=== PATIENT | female | born 1945 | race Caucasian/White ===

== ENCOUNTER 2021-11-06 11:29 | Outpatient (CLI) | payer MEDICARE | END 2021-11-06 11:30 | disposition home or self-care (01) | LOC: SCSRAD 11:29 | PROVIDERS: ATTEND Family Medicine | DX: M25.551 Pain in right hip (principal); M25.552 Pain in left hip; M53.3 Sacrococcygeal disorders, not elsewhere classified; M47.818 Spondylosis without myelopathy or radiculopathy, sacral and sacrococcygeal region | CPT/HCPCS: 72170; 72202 ==

== ENCOUNTER 2021-12-20 09:11 | Outpatient (CLI) | payer MEDICARE ==
[2021-12-20 11:18] LABS: #Basophils 0.1 10x3/uL (0.0-0.2); #Eosinphils 0.1 10x3/uL (0.0-0.5); #Monocytes 0.5 10x3/uL (0.0-1.1); #Neutrophils 2.9 10x3/uL (1.5-8.4); %Basophils 0.9 % (0.0-2.0); %Eosinophils 2.3 % (0.0-6.0); %Monocytes 9.2 % (0.0-10.0); %Neutrophils 54.8 % (40.0-75.0); Hemoglobin 13.3 g/dL (12.0-15.5); Mean Corpuscular HGB CONC 31.8 g/dL (32.0-36.0); Mean Corpuscular Hemoglobin 30.2 pg (27.0-33.0); Mean Corpuscular Volume 94.8 fl (81.6-98.3); Mean Platelet Volume 10.6 fl (7.4-10.4); Platelet Count 180 10x3/uL (150-450); RBC Distribution Width 13.2 % (11.5-14.5); Red Blood Cell (RBC) Count 4.41 10x6/uL (3.90-5.03); White Blood Cell (WBC) Count 5.3 10x3/uL (3.5-10.5)
[2021-12-20 12:22] LABS: Anion Gap 13 mmol/L (10-20); BUN (Urea Nitrogen) 16 mg/dL (9.8-20.1); Calc. Creatinine Clearance 0 mL/min (70-130); Calcium 9.1 mg/dL (7.8-10.44); Carbon Dioxide 28 mmol/L (23-31); Chloride 107 mmol/L (98-107); Glucose 95 mg/dL (83-110); Potassium 3.9 mmol/L (3.5-5.1); Sodium 144 mmol/L (136-145)
[2021-12-21 10:45] LABS: SARS-CoV-2 PCR by NAA DETECTED (NotDetected)
== END 2021-12-20 09:12 | disposition home or self-care (01) ==
LOC: LABBT 09:11
PROVIDERS: ATTEND Orthopaedic Surgery
DX: U07.1 COVID-19 (principal); Z01.818 Encounter for other preprocedural examination; M16.12 Unilateral primary osteoarthritis, left hip
CPT/HCPCS: 80048; 85025; 85610; 87081; 93005; U0003; U0005; 93010

== ENCOUNTER 2022-01-29 05:35 | Observation (INO) | payer MEDICARE ==
[2022-01-28 09:15] VITALS: BMI 24.7
[2022-01-29] MEDS ORDERED: Famotidine/PF 20 mg/2ml Vial ONE (06:17)
[2022-01-29] MEDS ORDERED: Vancomycin 1 GM/200 ML BAG ONE (06:33)
[2022-01-29] MEDS ORDERED: Sodium Chloride 0.9% 100 ML ONE (06:33)
[2022-01-29] MEDS ORDERED: Tranexamic Acid 1,000 MG/10 ML VIAL ONE (06:33)
[2022-01-29] MEDS ORDERED: Fentanyl 100 MCG/2 ML VIAL ONE ×5 (06:45→13:10)
[2022-01-29] MEDS ORDERED: Midazolam HCl 2 mg/2 ml Vial ONE (06:45)
[2022-01-29] MEDS ORDERED: ceFAZolin 2 GM/DEX 5% 100 ML BAG ONE (06:48)
[2022-01-29] MEDS ORDERED: Bupivacaine PF 0.5% 30 ML VIAL ONE (06:48)
[2022-01-29] MEDS ORDERED: Zolpidem Tartrate 5 MG TAB PO PRN (06:50)
[2022-01-29] MEDS ORDERED: Acetaminophen 325 MG TAB PO PRN ×2 (06:50→08:32)
[2022-01-29] MEDS ORDERED: Ondansetron PF 4 MG/2 ML Vial IVP PRN (06:50)
[2022-01-29] MEDS ORDERED: Promethazine HCl 25 MG/ML VIAL IM PRN (06:50)
[2022-01-29] MEDS ORDERED: diphenhydrAMINE 25 MG CAP PO PRN (06:50)
[2022-01-29] MEDS ORDERED: Propofol 500 MG/50 ML VIAL ONE (06:59)
[2022-01-29] MEDS ORDERED: ceFAZolin 2 GM/Dextrose 50 ML 2 GM in Premix Bag 1 BAG IVPB SCH (07:00)
[2022-01-29] MEDS ORDERED: PHENYLEPHRINE-NS 100 MCG/ML 10 ML SYRINGE ONE ×2 (07:33→09:14)
[2022-01-29] MEDS ORDERED: PROPOFOL 200 MG/20 ML VIAL ONE (07:33)
[2022-01-29] MEDS ORDERED: Bupivacaine HCl 0.5%/Epinephrine 1:200,000/PF 30 ml Vial ONE (07:33)
[2022-01-29] MEDS ORDERED: Ondansetron PF 4 MG/2 ML Vial ONE ×2 (07:33→08:17)
[2022-01-29] MEDS ORDERED: PROPOFOL 20 ML ONE (08:17)
[2022-01-29] MEDS ORDERED: Promethazine HCl 25 MG/ML VIAL IVPB PRN (08:31)
[2022-01-29] MEDS: Donepezil HCl 10 MG TAB PO SCH (14:21)
[2022-01-29] MEDS: Sodium Chloride 0.9% 1,000 ML IV SCH ×3 (14:21→20:55)
[2022-01-29] MEDS: Aspirin 81 mg Enteric Coated Tablet PO SCH ×2 (14:21→20:06)
[2022-01-29] MEDS: Multivitamin W/ Minerals 1 TAB PO SCH (14:21)
[2022-01-29] MEDS: Ferrous Gluconate 324 MG TAB PO SCH ×2 (14:21→20:06)
[2022-01-29] MEDS: Senokot S 8.6-50 MG TAB PO SCH ×2 (14:22→20:06)
[2022-01-29] MEDS: Ketorolac Tromethamine 30 MG/ML VIAL IM SCH ×2 (14:43→20:06)
[2022-01-29] MEDS: traMADol HCl 50 MG TAB PO PRN ×2 (14:43→20:08)
[2022-01-29] MEDS ORDERED: Fentanyl 100 MCG/2 ML VIAL SLOW IVP PRN (15:48)
[2022-01-29] MEDS: CEFAZOLIN 2 GM, Admixture Fee 1 EACH in Sodium Chloride 0.9% 100 ML IVPB SCH ×2 (16:35→20:06)
[2022-01-29] MEDS: Atorvastatin Calcium 10 MG TAB PO SCH (20:06)
[2022-01-29] MEDS ORDERED: Simvastatin 20 MG TAB PO SCH (21:00)
[2022-01-30] MEDS: traMADol HCl 50 MG TAB PO PRN (04:41)
[2022-01-30] MEDS: Ketorolac Tromethamine 30 MG/ML VIAL IM SCH ×3 (04:42→23:01)
[2022-01-30 05:58] LABS: Mean Corpuscular HGB CONC 34.2 g/dL (32.0-36.0); Mean Corpuscular Hemoglobin 32.7 pg (27.0-31.0); Mean Corpuscular Volume 95.6 fL (78.0-98.0); Mean Platelet Volume 7.5 fL (7.4-10.4); Platelet Count 130 thou/uL (130-400); RBC Distribution Width 11.8 % (11.5-14.5); Red Blood Cell (RBC) Count 3.98 mill/uL (4.20-5.40); White Blood Cell (WBC) Count 7.1 thou/uL (4.8-10.8)
[2022-01-30] MEDS: Aspirin 81 mg Enteric Coated Tablet PO SCH ×2 (09:44→20:55)
[2022-01-30] MEDS: Senokot S 8.6-50 MG TAB PO SCH ×2 (09:47→20:55)
[2022-01-30] MEDS: Ferrous Gluconate 324 MG TAB PO SCH ×2 (09:47→20:55)
[2022-01-30] MEDS: Multivitamin W/ Minerals 1 TAB PO SCH (09:47)
[2022-01-30] MEDS: Donepezil HCl 10 MG TAB PO SCH (09:48)
[2022-01-30] MEDS: Sodium Chloride 0.9% 1,000 ML IV SCH ×2 (15:55→23:02)
[2022-01-30] MEDS: Atorvastatin Calcium 10 MG TAB PO SCH (20:56)
[2022-01-31] MEDS: traMADol HCl 50 MG TAB PO PRN (05:29)
[2022-01-31] MEDS: Ketorolac Tromethamine 30 MG/ML VIAL IM SCH (06:49)
[2022-01-31 07:59] VITALS: BP 105/64; TEMP 98.7
[2022-01-31] MEDS: Multivitamin W/ Minerals 1 TAB PO SCH (08:00)
[2022-01-31] MEDS: Ferrous Gluconate 324 MG TAB PO SCH (08:00)
[2022-01-31] MEDS: Senokot S 8.6-50 MG TAB PO SCH (08:00)
[2022-01-31] MEDS: Aspirin 81 mg Enteric Coated Tablet PO SCH (08:00)
[2022-01-31] MEDS: Donepezil HCl 10 MG TAB PO SCH (08:00)
[2022-01-31] MEDS: Sodium Chloride 0.9% 1,000 ML IV SCH (08:01)
== END 2022-01-31 09:35 | disposition home health service (06) ==
LOC: SDC 05:35 → INTOOBSV 06:50 → SJJU 06:50
PROVIDERS: ADMIT Orthopaedic Surgery; ATTEND Orthopaedic Surgery
PROC: 0SRB04A Replacement of Left Hip Joint with Ceramic on Polyethylene Synthetic Substitute, Uncemented, Open Approach (ICD-10-PCS; principal; 2022-01-29)
PROC: 3E0T3BZ Introduction of Anesthetic Agent into Peripheral Nerves and Plexi, Percutaneous Approach (ICD-10-PCS; 2022-01-29)
DX: M16.12 Unilateral primary osteoarthritis, left hip (principal); E78.5 Hyperlipidemia, unspecified; M81.0 Age-related osteoporosis without current pathological fracture; Z87.891 Personal history of nicotine dependence; Z79.899 Other long term (current) drug therapy; Z88.0 Allergy status to penicillin; Z88.5 Allergy status to narcotic agent; Z88.8 Allergy status to other drugs, medicaments and biological substances
CPT/HCPCS: 27130; 64999; 73502; 85027; 97110; 97116 ×2; 97139 ×2; 97530 ×2; 97535; C1776; G0378 ×2; 36415; J0690; J1885; J2250; J2405; J2704; J3010; J3370; J3490; S0020; S0028